=== PATIENT | female | born 1965 | race Caucasian/White ===

== ENCOUNTER 2024-02-17 19:15 | Emergency (ER) | payer MEDICAID ==
[~2024-02-17] VITALS: Ht 170.2 cm; Wt 104.3 kg
[2024-02-17] MEDS ORDERED: ONDANSETRON HCL 4 MG TABLET ONE (19:38)
[2024-02-17] MEDS ORDERED: NITROGLYCERIN OINT 1 GM PACKET TP ONE (19:38)
[2024-02-17] MEDS ORDERED: CLONIDINE HCL 0.1 MG TABLET ONE (19:39)
[2024-02-17 19:41] LABS: BASOPHILS # (AUTO) 0.1 K/UL (0.0-0.2); BASOPHILS % (AUTO) 0.8 % (0.0-2.0); DIFFERENTIAL COMMENT 1; EOSINOPHILS # (AUTO) 0.1 K/uL (0.0-0.7); EOSINOPHILS % (AUTO) 1.3 % (0.0-7.0); HEMATOCRIT 45.3 % (31.2-41.9); HEMOGLOBIN 15.3 g/dL (10.9-14.3); LYMPHOCYTES # (AUTO) 1.8 K/uL (0.8-4.8); LYMPHOCYTES % (AUTO) 19.7 % (20.5-51.5); MEAN CORPUSCULAR HEMOGLOBIN 30.3 uug (24.7-32.8); MEAN CORPUSCULAR HGB CONC 34 g/dL (32.3-35.6); MEAN CORPUSCULAR VOLUME 89.9 fL (75.5-95.3); MONOCYTES # (AUTO) 0.9 K/uL (0.1-1.30); MONOCYTES % (AUTO) 9.8 % (0.0-11.0); NEUTROPHILS # (AUTO) 6.4 K/uL (1.8-8.9); NEUTROPHILS % (AUTO) 68.4 % (38.5-71.5); PLATELET COUNT (AUTO) 295 K/uL (179-408); RED BLOOD CELL COUNT(AUTO) 5.04 MIL/uL (3.63-4.92); RED CELL DISTRIBUTION WIDTH 13.3 % (12.3-17.7); WHITE BLOOD COUNT (AUTO) 9.3 K/uL (3.8-11.8)
[2024-02-17] MEDS: NITROGLYCERIN OINT 1 GM PACKET TP ONE (19:43)
[2024-02-17] MEDS: CLONIDINE HCL 0.1 MG TABLET PO ONE (19:43)
[2024-02-17] MEDS: ONDANSETRON ODT 4 MG TAB.RAPDIS SL ONE (19:43)
[2024-02-17 19:49] LABS: CARBON DIOXIDE 22 mmol/L (21-32); CHLORIDE 103 mmol/L (98-107); CREATININE 1.7 mg/dL (0.6-1.3); GLUCOSE 124 mg/dL (74-106); POTASSIUM 3.5 mmol/L (3.5-5.1); SODIUM SERUM 142 mmol/L (136-145); UREA NITROGEN, BLOOD 18 mg/dL (7-18)
[2024-02-17 19:54] LABS: BILIRUBIN,DIRECT 0.1 mg/dL (0.0-0.2); BILIRUBIN,TOTAL 0.6 mg/dL (0.2-1.0); TOTAL PROTEIN, SERUM 8.6 g/dL (6.4-8.2)
[2024-02-17] MEDS ORDERED: hydrALAZINE HCL 20 MG/1 ML VIAL ONE (20:38)
[2024-02-17] MEDS: hydrALAZINE HCL 20 MG/1 ML VIAL IV ONE (21:21)
[2024-02-17] MEDS ORDERED: ONDA4TAB11 PO (21:56)
[2024-02-17] MEDS ORDERED: AMLO-212 PO (21:56)
[2024-02-18 00:10] VITALS: BP 126/81; TEMP 98.1; O2SAT 96
== END 2024-02-18 00:11 | disposition home or self-care (01) ==
LOC: ER 19:16
DX: R07.89 Other chest pain (principal); I11.9 Hypertensive heart disease without heart failure; Z98.890 Other specified postprocedural states; Z59.01 Sheltered homelessness
CPT/HCPCS: 36415; 71045; 84484; 85025; A4606; A4663; J0360; Q0162